=== PATIENT | male | born 1975 | race Caucasian/White ===

== ENCOUNTER 2017-05-03 17:24 | Emergency (ER) | payer OTHER ==
--- NOTE | ~2017-05-03 | CR141 ---
STS. [facility] A Service of [facility] RADIOLOGY TEXT RESULTS PATIENT: WATSON HERNANDEZ LOCATION: SED : 77 UNIT #: [id number] AGE: [address]: Troy Dan SEX: M ORDER DR: [id number] [address] [address] [id number] MR#: [id number] Acc #: [id number] NAME: WATSON HERNANDEZ : 1975 SEX: M STUDY DATE/TIME: 05/03/2017 17:49 UNIT: SED ROOM: STUDY DESCRIPTION: CR Hand Min 3 Views Lt Attending Physician: Troy Dan P.A.-C. Ordering Physician: Troy Dan P.A.-C. MEDICAL IMAGING REPORT This report is preliminary unless electronic signature is present. EXAM Left hand series 05/03/2017 HISTORY Laceration. Possible foreign body. Cut on mattress spring. Laceration top of hand today. FINDINGS AP lateral and oblique radiographs of the left hand are presented. No traumatic fracture or malalignment. Joint spaces are intact. Soft tissue irregularity suggested dorsal/palmar aspect of hand at level of mid fifth metacarpal bone. This is felt to reflect the patient's laceration. There is no associated radiodense foreign body. There is some mild soft tissue swelling at this location. Dictated by... Pilo Luna M.D. THIS IS AN ELECTRONICALLY VERIFIED REPORT Pilo Luna M.D. at 05/09/2017 10:15 AM Consuelo TD: 05/03/2017 19:57 JOB #: [id number] MEDICAL IMAGING REPORT Page 1 of 1
[2017-05-03] MEDS ORDERED: NO MEDICATIONS (17:37)
== END 2017-05-03 18:49 | disposition home or self-care (01) ==
LOC: SED 17:24
DX: S61.412A Laceration without foreign body of left hand, initial encounter (principal); W45.8XXA Other foreign body or object entering through skin, initial encounter; Y92.9 Unspecified place or not applicable
CPT/HCPCS: 12002; 73130; 99283